=== PATIENT | female | born 1940 | race Caucasian/White ===

== ENCOUNTER 2018-06-03 09:56 | Emergency (ER) | payer MEDICARE, OTHER ==
[2018-06-03 09:56] VITALS: BMI 25.3
[2018-06-03 10:14] VITALS: RESP 18; O2SAT 100
--- NOTE | 2018-06-03 10:28 | C.PDOC ---
History Of Present Illness 77 year old female presents to the ED complaining of abdominal pain for the past 8 months. She reports pain is not worse today. She denies any n/v/d, fever , or urinary symptoms. Patient reports her mother is in the ED so she decided to be seen as well. She reports she was seen by her PMD, Dr. Pitts, who prescribed her medications for the pain and told her she has a hernia from a prior abdominal surgery. Time Seen by Provider: 06/03/18 09:59 Chief Complaint (Nursing): Abdominal Pain History Per: Patient History/Exam Limitations: no limitations Onset/Duration Of Symptoms: Other (8 months ) Current Symptoms Are (Timing): Still Present Location Of Pain/Discomfort: RLQ Radiation Of Pain To:: None Quality Of Discomfort: "Pain" Associated Symptoms: denies: Fever, Nausea, Vomiting, Diarrhea, Urinary Symptoms Past Medical History Reviewed: Historical Data, Nursing Documentation, Vital Signs Vital Signs: Last Vital Signs Temp 99 F 06/03/18 10:05 Pulse 61 06/03/18 10:05 Resp 18 06/03/18 10:05 BP 174/79 H 06/03/18 10:05 Pulse Ox 100 06/03/18 10:55 - Medical History PMH: Anxiety, Gastritis, HTN Surgical History: Endoscopy Family History: States: Unknown Family Hx - Social History Hx Alcohol Use: No Hx Substance Use: No - Immunization History Hx Tetanus Toxoid Vaccination: No Hx Influenza Vaccination: No Hx Pneumococcal Vaccination: No Review Of Systems Except As Marked, All Systems Reviewed And Found Negative. Gastrointestinal: Positive for: Abdominal Pain Physical Exam - Physical Exam Appears: Non-toxic, No Acute Distress Skin: Warm, Dry Head: Atraumatic, Normacephalic Eye(s): bilateral: Normal Inspection Nose: Normal Oral Mucosa: Moist Neck: Supple Chest: Symmetrical Cardiovascular: Rhythm Regular, No Murmur Respiratory: Normal Breath Sounds, No Rales, No Rhonchi, No Wheezing Gastrointestinal/Abdominal: Bowel Sounds (Active ), Soft, No Tenderness, Hernia (Reducible hernia ), Other (Well healed midline surgical scar ) Extremity: Bilateral: Atraumatic, Normal Color And Temperature, Normal ROM Neurological/Psych: Oriented x3, Normal Speech Gait: Steady ED Course And Treatment - Laboratory Results Result Diagrams: 06/03/18 10:37 06/03/18 10:37 O2 Sat by Pulse Oximetry: 100 Medical Decision Making Medical Decision Making: Impression: Chronic abdominal pain with hernia Plan - Labs - XR abs - Pepcid 20mg IVP - Toradol 30mg IVP - UA obstruction series - prel. read nsgp will discharge home. 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 Disposition Doctor Will See Patient In The: Hospital Counseled Patient/Family Regarding: Studies Performed, Diagnosis - Disposition Referrals: Greg Dela Cruz MD [Staff Provider] - Disposition: HOME/ ROUTINE Disposition Time: 10:56 Condition: STABLE Additional Instructions: you have to follow up with surgeon call within 2 days to make an appointment continue your home medications return to ER if symptoms worsens or progress Instructions: Abdominal Hernia (DC), Acute Abdomen (Belly Pain), Adult (DC) Forms: Gen Discharge Inst Marshallese, [facility] (Marshallese) Print Language: TURKISH - Clinical Impression Clinical Impression: Abdominal pain, Hernia - Scribe Statement The provider has reviewed the documentation as recorded by the Jaminibaristides Beltran All medical record entries made by the Stephane were at my direction and personally dictated by me. I have reviewed the chart and agree that the record accurately reflects my personal performance of the history, physical exam, medical decision making, and the department course for this patient. I have also personally directed, reviewed, and agree with the discharge instructions and disposition.
[2018-06-03 10:42] LABS: BASO % 0.3 % (0.0-2.0); EOS % 0.6 % (0.0-4.0); LYMPH # 1.6 K/uL (1.0-4.3); LYMPH % 24.4 % (20.0-40.0); MEAN CELL VOLUME 80.5 fL (81.0-99.0); MEAN CORPUSCULAR HEMOGLOBIN 27.1 pg (27.0-31.0); MEAN CORPUSCULAR HGB CONC 33.7 g/dL (33.0-37.0); MEAN PLATELET VOLUME 8.7 fL (7.2-11.7); MONO # 0.4 K/uL (0.0-0.8); MONO % 6.5 % (0.0-10.0); NEUT # 4.6 K/uL (1.8-7.0); NEUT % 68.2 % (50.0-75.0); RBC 4.81 Mil/uL (3.80-5.20); RED CELL DISTRIBUTION WIDTH 14.5 % (11.5-14.5); WHITE BLOOD COUNT 6.7 K/uL (4.8-10.8)
[2018-06-03 10:42] LABS: SQUAMOUS EPITHIAL 13 /hpf (0-5); URINE BACTERIA OCC (<OCC); URINE BILIRUBIN NEGATIVE (NEGATIVE); URINE BLOOD 1+ (NEGATIVE); URINE CLARITY Hazy (Clear); URINE COLOR Yellow (YELLOW); URINE GLUCOSE (UA) NORMAL (Normal); URINE LEUKOCYTE ESTERASE 3+ Leu/uL (Negative); URINE PROTEIN NEGATIVE (NEGATIVE)
[2018-06-03 10:52] LABS: ALB/GLOB RATIO 1.2 (1.0-2.1)
[2018-06-03 10:54] LABS: ALBUMIN 4.3 g/dL (3.5-5.0); ALT/SGPT 18 U/L (9-52); AST/SGOT 15 U/L (14-36); BLOOD UREA NITROGEN 13 mg/dL (7-17); CALCIUM 9.5 mg/dl (8.6-10.4); GFR AFRICAN-AMERICAN > 60; GFR NON-AFRICAN AMERICAN > 60; LIPASE 65 U/L (23-300)
[2018-06-03 11:42] VITALS: BP 158/72; PULSE 66; TEMP 98.9
--- NOTE | 2018-06-03 17:54 | RAD ---
Date of service: 06/03/2018 PROCEDURE: Radiographs of the chest and abdomen (obstructive series) HISTORY: abd pain COMPARISON: No prior. TECHNIQUE: AP radiograph of the chest, with upright and supine radiographs of the abdomen. FINDINGS: CHEST: Lungs: No interval pulmonary disease appreciated bilaterally. Cardiovascular: Normal size heart. No pulmonary vascular congestion. Pleura: No pleural fluid. No pneumothorax. Other findings: None. ABDOMEN AND PELVIS: Bowel: Unremarkable bowel gas pattern. No evidence of mechanical obstruction. Free air: None. Bones: Unremarkable. Other findings: None. IMPRESSION: Unremarkable radiographs of chest and abdomen. No evidence of mechanical bowel obstruction.
== END 2018-06-03 11:42 | disposition home or self-care (01) ==
LOC: C.ER 09:56
DX: K46.9 Unspecified abdominal hernia without obstruction or gangrene (principal); R10.31 Right lower quadrant pain
CPT/HCPCS: 74022; 80053; 81001; 83690; 85025; 96374; 96375; 99284; J1885